=== PATIENT | female | born 1975 | race Hispanic/Latino ===

== ENCOUNTER 2018-08-18 15:07 | Inpatient (IN) | payer SELFPAY ==
[~2018-08-18] VITALS: Ht 162.6 cm; Wt 108.9 kg
[2018-08-18] MEDS: SODIUM CHLORIDE 0.9% 1000ML 1,000 ML IV SCH (11:30)
[2018-08-18 16:30] LABS: CLARITY,URINE HAZY (CLEAR); COLOR,URINE YELLOW (YELLOW)
[2018-08-18 16:31] LABS: BACTERIA,URINE FEW /HPF; BILIRUBIN,URINE NEGATIVE (NEGATIVE); EPITHELIAL CELLS,URINE MODERATE /LPF; KETONES,URINE NEGATIVE (NEGATIVE); LEUKOCYTE ESTERASE ,URINE NEGATIVE (NEGATIVE); NITRITE,URINE NEGATIVE (NEGATIVE); PROTEIN,URINE DIPSTICK NEGATIVE (NEGATIVE); RBC,URINE 0-5 /HPF (0-5); URINE UROBILINOGEN 0.2 mg/dL (0.2 - 1); WBC,URINE (MAN) 0-5 /HPF (0-5)
[2018-08-18 16:32] LABS: PREGNANCY TEST, URINE NEGATIVE (NEGATIVE)
[2018-08-18 16:36] LABS: BASOPHILS # (AUTO) 0.1 (0.0-0.1); BASOPHILS % 0.4 % (0.0-1.0); EOSINOPHILS # (AUTO) 0.1 (0.0-0.4); EOSINOPHILS % 1.1 % (0.0-6.0); HEMATOCRIT 38.7 % (34.2-44.1); HEMOGLOBIN 12.9 g/dL (12.0-16.0); LYMPHOCYTES # (AUTO) 2.6 (1.0-3.2); LYMPHOCYTES % 22.3 % (18.0-39.1); MEAN CORPUSCULAR HEMOGLOBIN 27.6 pg (28-32); MEAN CORPUSCULAR HGB CONC 33.3 g/dL (31-35); MEAN CORPUSCULAR VOLUME 82.7 fL (81-99); MONOCYTES # (AUTO) 0.5 (0.2-0.8); MONOCYTES % 4.6 % (4.4-11.3); NEUTROPHILS # (AUTO) 8.3 (2.1-6.9); NEUTROPHILS % 71.3 % (38.7-80.0); PLATELET COUNT 275 x10e3/uL (140-360); RED BLOOD COUNT 4.68 x10e6/uL (3.6-5.1); RED CELL DISTRIBUTION WIDTH 13.6 % (11.7-14.4)
[2018-08-18 17:01] LABS: ALANINE AMINOTRANSFERASE 43 IU/L (0-55); ALBUMIN 3.6 g/dL (3.5-5.0); ALKALINE PHOSPHATASE 85 IU/L (40-150); AMYLASE 292 U/L (25-125); ANION GAP 12.9 mmol/L (8-16); BLOOD UREA NITROGEN 14 mg/dL (7-26); BUN/CREATININE RATIO 16 (6-25); CALCIUM 8.6 mg/dL (8.4-10.2); CARBON DIOXIDE 25 mmol/L (22-29); CHLORIDE 109 mmol/L (98-107); CREATININE, SERUM 0.85 mg/dL (0.57-1.11); EST GLOMERULAR FILTRATION RATE > 60 ML/MIN (60-); GLUCOSE 104 mg/dL (74-118); LIPASE 523 U/L (8-78); POTASSIUM 3.9 mmol/L (3.5-5.1); SODIUM 143 mmol/L (136-145)
[2018-08-18] MEDS ORDERED: SODIUM CHLORIDE 0.9% 50ML 50 ML ONE (18:25)
[2018-08-18] MEDS ORDERED: IOPAMIDOL 370 MG/ML 200 ML INFUS..BTL INJ ONE (18:25)
--- NOTE | 2018-08-18 18:48 | Diagnostic Imaging Report ---
CT Abdomen And Pelvis with Intravenous Contrast INDICATION: Nausea ^rt lower quad pain TECHNIQUE: Thin collimation axial images obtained from the diaphragm to the level of the pubic symphysis following the uneventful administration of 100 cc of low osmolar, nonionic intravenous contrast. Dose reduction techniques used: Automated exposure control, adjustment of the mAs and/or kVp according to patient size, standardized low-dose protocol, and/or iterative reconstruction technique. RADIATION DOSE: Total DLP: 752.5 mGy*cm Estimated effective dose: (DLP x 0.015 x size factor) mSv CTDIvol has been reviewed. It is below the limits set by the Radiation Protocol Committee (RPC). COMPARISON: None. ABDOMEN FINDINGS: Lung Bases: Clear. The visualized portions of the mediastinum are normal.. Liver: Normal attenuation. No evidence for mass. Gallbladder: Present and appears normal. No biliary ductal dilatation. Pancreas: Normal attenuation without mass or ductal dilatation. Spleen: Normal in size. No evidence of mass.. Adrenal Glands: No evidence for mass. Kidneys: Right: Normal enhancement. No soft tissue mass. No hydronephrosis. Left: Normal enhancement. No soft tissue mass. No hydronephrosis. Lymph Nodes: No enlarged abdominal or periaortic lymph nodes. Aorta: Normal in diameter PELVIS FINDINGS: Bowel: Stomach: Normal in caliber with normal wall thickness. Small Bowel: Normal in caliber with normal wall thickness. Large Bowel: Normal in caliber with normal wall thickness. Appendix: Normal appendix (axial image 66). Bladder: Normal. Ureters: Nondilated. No evidence of calculus. The uterus is present and normal in morphology. No adnexal mass. Peritoneum/retroperitoneum: No free fluid or fluid collection. Bones: Unremarkable for age. Soft tissues: Unremarkable. IMPRESSION: 1. No evidence for bowel obstruction or inflammation. Normal appendix. 2. No CT findings to explain abdominal pain. Signed by: Dr. Arabella Ash MD on 08/18/2018 6:45 PM
[2018-08-18] MEDS ORDERED: ONDANSETRON HCL INJ 2MG/ML 2ML 2 MG/ML VIAL IV PRN (21:15)
[2018-08-18] MEDS ORDERED: PANTOPRAZOLE 40 MG 10ML VIAL IV STA (21:15)
[2018-08-18] MEDS ORDERED: SODIUM CHLORIDE 0.9% 1000ML 1,000 ML IV STA (21:15)
[2018-08-18] MEDS ORDERED: MORPHINE SULFATE INJ 4 MG/ML INJ 1ML IV PRN (21:15)
--- NOTE | 2018-08-18 21:47 | Diagnostic Imaging Report ---
EXAM: Gallbladder Ultrasound INDICATION: Sharp abdominal pain. ^Elevated AST/ALT COMPARISON: None. TECHNIQUE: Transverse and longitudinal images of the gallbladder were obtained. FINDINGS: Liver: 16.2 cm in length, mildly enlarged. Mild diffuse increased echogenicity. Gallbladder: Stones/Sludge: Small volume sludge. Wall: 0.2 cm Appearance: No wall thickening, pericholecystic fluid or hydrops. Sonographic Ag's Sign: Negative Bile Ducts: Intrahepatic Ducts: No dilatation Extrahepatic Ducts: Common bile duct measures 0.4 cm, no dilatation Free Fluid: No ascites or pleural effusion Main portal vein: 0.8 cm in diameter, normal. Hepatopedal flow. Pancreas: Visualized portions of the pancreatic body are unremarkable. Right kidney: 12.0 cm in length. No hydronephrosis, focal mass or nephrolithiasis. No free fluid. IMPRESSION: Borderline hepatomegaly. Mild hepatic steatosis. Small volume gallbladder sludge. No biliary dilatation. Signed by: Dr. Ortega Mayo M.D. on 08/18/2018 9:43 PM
--- OUTSIDE RECORDS SUMMARY | 2018-08-18 22:14 | XMS REPORT ---
Author Author [facility] Address Unknown Phone Unavailable Care Team Providers Care Pattern Duplicator Name Role Phone Kamini SILVERIO Unavailable Unavailable Problems This patient has no known problems. Allergies, Adverse Reactions, Alerts This patient has no known allergies or adverse reactions. Medications This patient has no known medications. Results Test Description Test Time Test Comments Text Results Atomic Results Result Comments US GALLBLADDER 2018-08-18 21:40:00 [facility] [address] [place] [address] Patient Name: PETTY HUSSEIN MR #: [id number] : 1975 Age/Sex: 43/F Req #: [id number] Adm Physician: Ordered by: BRODERICK NUR NP Report #: [id number] Location: ER Room/Bed: Procedure: [id number] US/US GALLBLADDER Exam Date: 08/18/18 Exam Time: 2117 REPORT STATUS: Signed EXAM: Gallbladder Ultrasound INDICATION: Sharp abdominal pain. Elevated AST/ALT COMPARISON: None. TECHNIQUE: Transverse and longitudinal images of the gallbladder were obtained. FINDINGS: Liver: 16.2 cm in length, mildly enlarged. Mild diffuse increased echogenicity. Gallbladder: Stones/Sludge: Small volume sludge. Wall: 0.2 cm Appearance: No wall thickening, pericholecystic fluid or hydrops. Sonographic Ag's Sign: Negative Bile Ducts: Intrahepatic Ducts: No dilatation Extrahepatic Ducts: Common bile duct measures 0.4 cm, no dilatation Free Fluid: No ascites or pleural effusion Main portal vein: 0.8 cm in diameter, normal. Hepatopedal flow. Pancreas: Visualized portions of the pancreatic body are unremarkable. Right kidney: 12.0 cm in length. No hydronephrosis, focal mass or nephrolithiasis. No free fluid. IMPRESSION: Borderline hepatomegaly. Mild hepatic steatosis. Small volume gallbladder sludge. No biliary dilatation. Signed by: Dr. Ortega mckeon M.D. on 08/18/2018 9:43 PM Dictated By: JOHNATHON QUIGLEY MD, MD 42 Transcribed By: CARLY on 08/18/182142 COPY TO: BRODERICK NUR NP CT ABDOMEN/PELVIS W 2018-08-18 18:41:00 [place] [address] Patient Name: PETTY HUSSEIN MR #: [id number] : 1975 Age/Sex: 43/F Req #: [id number] Adm Physician: Ordered by: BRODERICK NUR NP Report #: [id number] Location: ER Room/Bed: Procedure: [id number] CT/CT ABDOMEN/PELVIS W Exam Date: Exam Time: REPORT STATUS: Signed CT Abdomen And Pelvis with Intravenous Contrast INDICATION: N ausea rt lower quad pain TECHNIQUE: Thin collimation axial images obtained from the diaphragm to the level of the pubic symphysis following the uneventful administration of 100 cc of low osmolar, nonionic intravenous contrast. Dose reduction techniques used: Automated exposure control, adjustment of the mAs and/or kVp according to patient size, standardized low- dose protocol, and/or iterative reconstruction technique. RADIATION DOSE: Total DLP: 752.5 mGy*cm Estimated effective dose: (DLP x 0.015 x size factor) mSv CTDIvol has been reviewed. It is below the limits set by the Radiation Protocol Committee (RPC). COMPARISON: None. ABDOMEN FINDINGS: Lung Bases: Clear. The visualized portions of the mediastinum are normal.. Liver: Normal attenuation. No evidence for mass. Gallbladder: Present and appears normal. No biliary ductal dilatation. Pancreas: Normal attenuation without mass or ductal dilatation. Spleen: Normal in size. No evidence of mass.. Adrenal Glands: No evidence for mass. Kidneys: Right: Normal enhancement. No soft tissue mass. No hydronephrosis. Left: Normal enhancement. No soft tissue mass. No hydronephrosis. Lymph Nodes: No enlarged abdominal or periaortic lymph nodes. Aorta: Normal in diameter PELVIS FINDINGS: Bowel: Stomach: Normal in caliber with normal wall thickness. Small Bowel: Normal in caliber with normal wall thickness. Large Bowel: Normal in caliber with normal wall thickness. Appendix: Normal appendix (axial image 66). Bladder: Normal. Ureters: Nondilated. No evidence of calculus. The uterus is present and normal in morphology. No adnexal mass. Peritoneum/retroperitoneum: No free fluid or fluid collection. Bones: Unremarkable for age. Soft tissues: Unremarkable. IMPRESSION: 1. No evidence for bowel obstruction or inflammation. Normal appendix. 2. No CT findings to explain abdominal pain. Signed by: Dr. Elio Ash MD on 08/18/2018 6:45 PM Dictated By: ELIO ASH MD 43 Transcribed By: CARLY on 08/18/181844 COPY TO: BRODERICK NUR NP
[2018-08-18 22:17] LABS: CHOL/HDL RATIO 3.2 (3.0-3.6)
--- NOTE | 2018-08-18 23:10 | NUR ---
Walking rounds completed with [facility] stage setting painter apprentice RN. Pt is in no acute distress, updated the patient and family on plan of care. Pt and family verbalized their understanding.
[2018-08-19] VITALS (9 sets, daily range): BP systolic 103–152; BP diastolic 55–96
--- NOTE | 2018-08-19 02:40 | NUR ---
Patient arrived via stretcher. at bedside. Got report from P[facility] ER nurse. Patient in no pain or distress. Call light within reach.
[2018-08-19 05:49] LABS: BASOPHILS % 0.2 % (0.0-1.0); EOSINOPHILS # (AUTO) 0.2 (0.0-0.4); EOSINOPHILS % 1.6 % (0.0-6.0); LYMPHOCYTES # (AUTO) 2.6 (1.0-3.2); MEAN CORPUSCULAR HEMOGLOBIN 27.6 pg (28-32); MEAN CORPUSCULAR HGB CONC 33.3 g/dL (31-35); MEAN CORPUSCULAR VOLUME 82.8 fL (81-99); MONOCYTES # (AUTO) 0.5 (0.2-0.8); MONOCYTES % 5.3 % (4.4-11.3); NEUTROPHILS # (AUTO) 6.3 (2.1-6.9); NEUTROPHILS % 65.4 % (38.7-80.0); PLATELET COUNT 237 x10e3/uL (140-360); RED BLOOD COUNT 4.35 x10e6/uL (3.6-5.1); RED CELL DISTRIBUTION WIDTH 13.4 % (11.7-14.4)
[2018-08-19 06:35] LABS: ALANINE AMINOTRANSFERASE 30 IU/L (0-55); ALBUMIN 3.4 g/dL (3.5-5.0); ALBUMIN/GLOBULIN RATIO 1.2 (0.8-2.0); ALKALINE PHOSPHATASE 73 IU/L (40-150); AMYLASE 50 U/L (25-125); ANION GAP 10.6 mmol/L (8-16); BLOOD UREA NITROGEN 12 mg/dL (7-26); BUN/CREATININE RATIO 18 (6-25); CALCIUM 8.4 mg/dL (8.4-10.2); CARBON DIOXIDE 24 mmol/L (22-29); CHLORIDE 110 mmol/L (98-107); CREATININE, SERUM 0.66 mg/dL (0.57-1.11); EST GLOMERULAR FILTRATION RATE > 60 ML/MIN (60-); GLUCOSE 96 mg/dL (74-118); LIPASE 23 U/L (8-78); POTASSIUM 3.6 mmol/L (3.5-5.1); SODIUM 141 mmol/L (136-145)
--- NOTE | 2018-08-19 07:10 | NUR ---
RCD PT AT BED PT IS ALERT AND ORIENTED PT RESTING ON BED NO SIGNS OF ANY DISTRESS NOTED PT NPO BED LOW AND LOCKED CALL LIGHT IN REACH
--- NOTE | 2018-08-19 07:17 | NUR ---
Gave report to oncoming nurse. Patient asleep in bed. no pain or distress. call light within reach. at bedside
[2018-08-19] MEDS: PANTOPRAZOLE 40 MG 10ML VIAL IV SCH (09:00)
[2018-08-19] MEDS ORDERED: ZOFRAN4 MG PO (09:39)
[2018-08-19] MEDS ORDERED: TYLENOL WITH C1 EACH PO (09:39)
[2018-08-19] MEDS ORDERED: PANTOPRAZOLE SO40 MG PO (09:43)
[2018-08-19] MEDS ORDERED: ACETAMINOPHEN 325 MG TAB PO PRN (09:45)
--- NOTE | 2018-08-19 10:39 | NUR ---
GAVE PACKET OF INFORMATION WITH [employer] [employer] FOR ASSISTANCE WITH LOW TO NO INCOME TO PATIENT. RESOURCES THAT PATIENT MAY BE ABLE TO FOLLOW UP UPON DISCHARGE. PT EDUCATED ON EACH RESOURCE AND UNDERSTANDING HOW TO FOLLOW UP TO SEE IF QUALIFIED FOR EACH RESOURCE.
[2018-08-19] MEDS: SODIUM CHLORIDE 0.9% 1000ML 1,000 ML IV SCH ×2 (13:15→21:30)
--- NOTE | 2018-08-19 16:42 | NUR ---
VIVEK TANG IS AWARE ABOUT THE PT IS TOLERATING THE FOOD SHE SAID PT CAN GO HOME ON TOMORROW
--- NOTE | 2018-08-19 18:52 | NUR ---
PT RESTING ON BED BED SIDE REPORT GIVEN TO ONCOMING NURSE
[2018-08-20 00:12] VITALS: BP 146/75
[2018-08-20 04:52] VITALS: BP 100/57
[2018-08-20 05:27] LABS: BASOPHILS % 0.2 % (0.0-1.0); EOSINOPHILS # (AUTO) 0.1 (0.0-0.4); EOSINOPHILS % 1.4 % (0.0-6.0); HEMATOCRIT 34.8 % (34.2-44.1); HEMOGLOBIN 11.4 g/dL (12.0-16.0); LYMPHOCYTES # (AUTO) 1.7 (1.0-3.2); LYMPHOCYTES % 18.4 % (18.0-39.1); MEAN CORPUSCULAR HEMOGLOBIN 27.4 pg (28-32); MEAN CORPUSCULAR HGB CONC 32.8 g/dL (31-35); MEAN CORPUSCULAR VOLUME 83.7 fL (81-99); MONOCYTES # (AUTO) 0.5 (0.2-0.8); MONOCYTES % 5.1 % (4.4-11.3); NEUTROPHILS # (AUTO) 6.8 (2.1-6.9); NEUTROPHILS % 74.3 % (38.7-80.0); PLATELET COUNT 227 x10e3/uL (140-360); RED BLOOD COUNT 4.16 x10e6/uL (3.6-5.1); RED CELL DISTRIBUTION WIDTH 13.5 % (11.7-14.4)
[2018-08-20] MEDS: SODIUM CHLORIDE 0.9% 1000ML 1,000 ML IV SCH (05:50)
[2018-08-20 05:58] LABS: ALANINE AMINOTRANSFERASE 22 IU/L (0-55); ALBUMIN 3.1 g/dL (3.5-5.0); ALKALINE PHOSPHATASE 69 IU/L (40-150); ANION GAP 10.5 mmol/L (8-16); BILIRUBIN,DIRECT 0.2 mg/dL (0.0-0.5); BLOOD UREA NITROGEN 8 mg/dL (7-26); BUN/CREATININE RATIO 13 (6-25); CALCIUM 8.1 mg/dL (8.4-10.2); CARBON DIOXIDE 22 mmol/L (22-29); CHLORIDE 112 mmol/L (98-107); CREATININE, SERUM 0.64 mg/dL (0.57-1.11); EST GLOMERULAR FILTRATION RATE > 60 ML/MIN (60-); GLUCOSE 92 mg/dL (74-118); LIPASE 17 U/L (8-78); MAGNESIUM 1.9 MG/DL (1.3-2.1); POTASSIUM 3.5 mmol/L (3.5-5.1); SODIUM 141 mmol/L (136-145)
--- NOTE | 2018-08-20 07:00 | NUR ---
RCD PT AT BED PT IS ALERT AND ORIENTED PT RESTING ON BED NO SIGNS OF ANY DISTRESS NOTED FAMILY AT BED SIDE BED LOW AND LOCKED CALL LIGHT IN REACH
--- NOTE | 2018-08-20 07:00 | NUR ---
REPORT GIVEN TO ONCOMING NURSE.WALKING ROUNDS MADE.PT RESTING IN BED WITH NO S/S OF DISTRESS.
--- NOTE | 2018-08-20 07:10 | NUR ---
RCD PT AT BED PT IS ALERT AND ORIENTED PT RESTING ON BED NO SIGNS OF ANY DISTRESS NOTED PT NPO BED LOW AND LOCKED CALL LIGHT IN REACH Addendum: 08/20/18 at 0746 by Christine Bueno RN WRONG PATIENT
[2018-08-20 07:44] VITALS: BP 100/57
[2018-08-20 08:19] VITALS: BP 114/58
[2018-08-20] MEDS: PANTOPRAZOLE 40 MG 10ML VIAL IV SCH (08:44)
--- NOTE | 2018-08-20 08:50 | NUR ---
PT WENT HOME IN SAFE CONDITION WITH HER
--- NOTE | 2018-08-21 03:05 | Discharge Summary ---
ADMISSION DIAGNOSES: Pancreatitis, morbid obesity, leukocytosis, transaminitis. DISCHARGE DIAGNOSES: Pancreatitis, morbid obesity, leukocytosis, transaminitis. HISTORY: None. SURGICAL HISTORY: None. FAMILY HISTORY: The patient's brother had a heart attack. SOCIAL HISTORY: None. HOSPITAL COURSE: A 43-year-old female complains of constant, sharp epigastric and right upper quadrant abdominal pain that began Sunday morning while getting ready for hinduism. She had associated nausea, but denies vomiting. Pain is improved with pain pills and worsened with food. She denies vomiting, fever, or diarrhea. On admission, the patient's lipase was 523. CT of the abdomen was negative. Ultrasound of the gallbladder showed borderline hepatomegaly, mild hepatic steatosis, small volume gallbladder sludge, no biliary dilatation. The patient's diet was advanced as the lipase normalized. She is now tolerating a regular diet with no issues. She will discharge home with family and follow up with primary care in 1 to 2 weeks. The patient understands discharge instructions and agrees to plan. Vital signs stable, patient afebrile. Crystal Ratliff NP GRIFFIN/MODL /[id number]
== END 2018-08-20 08:49 | disposition home or self-care (01) | DRG 439 ==
LOC: ER 15:07 → ERHOLD 22:10 → MED/SURG2 08-19 02:06
PROVIDERS: ADMIT Internal Medicine; ATTEND Internal Medicine
DX: K85.90 Acute pancreatitis without necrosis or infection, unspecified (principal); Z68.41 Body mass index [BMI] 40.0-44.9, adult; E66.01 Morbid (severe) obesity due to excess calories; R74.0 Nonspecific elevation of levels of transaminase and lactic acid dehydrogenase [LDH]
CPT/HCPCS: 36415; 74177; 76705; 80048; 80053; 80061; 80076; 81001; 81025; 82150; 82948; 83690; 83735; 85025; 99284; J7030; Q9967